=== PATIENT | male | born 1955 | race Caucasian/White ===

== ENCOUNTER → 2019-01-11 | Outpatient (CLI) | payer BC ==
--- NOTE | 2019-01-11 14:48 | XR ---
EXAMINATION TYPE: XR chest 2V DATE OF EXAM: 01/11/2019 COMPARISON: NONE TECHNIQUE: PA and lateral views submitted. HISTORY: Increasing shortness of breath FINDINGS: The lungs are clear and there is no pneumothorax, pleural effusion, or focal pneumonia. No overt fa ilure. Heart size normal. Atherosclerotic change aorta. Biapical pleural thickening. Hypertrophic and degenerative change of the spine. Mild hyperinflation. IMPRESSION: 1. No acute process. Mild hyperinflation correlate for asthma or COPD.
== END | disposition home or self-care (01) ==
LOC: RADXRYALE 14:04
PROVIDERS: ATTEND Internal Medicine
DX: R91.8 Other nonspecific abnormal finding of lung field (principal); R06.02 Shortness of breath
CPT/HCPCS: 71046

== ENCOUNTER → 2020-03-18 | Outpatient (CLI) | payer BC ==
--- NOTE | 2020-03-18 13:48 | MR ---
EXAMINATION TYPE: MR knee LT wo con DATE OF EXAM: 03/18/2020 COMPARISON: None HISTORY: Pain in LT knee TECHNIQUE: Multiplanar, multisequence imaging of the left knee is performed without IV contrast. FINDINGS: MEDIAL MENISCUS: Myxoid degeneration posterior horn medial meniscus. Meniscal body and anterior horn are intact. LATERAL MENISCUS: Anterior and posterior horns are intact without tear. CRUCIATE LIGAMENTS: The anterior and posterior cruciate ligaments are intact and unremarkable. COLLATERAL LIGAMENTS: The medial collateral ligament and lateral collateral ligament complex are inta ct and unremarkable. EXTENSOR MECHANISM: Visualized quadriceps and patellar tendons are intact. EFFUSION: No significant suprapatellar joint effusion. POPLITEAL CYST: No popliteal/fontanez cyst. TRICOMPARTMENT SPACES: Mild narrowing medial tibiofemoral joint space. Moderate to severe narrowing p atellofemoral joint space with the cartilaginous thinning and changes of chondromalacia patella. BONE MARROW SIGNAL: Increased bone marrow signal involving the ventral portion of the distal femur co mpatible with bone marrow contusion. OTHER: No additional significant abnormality is appreciated. IMPRESSION: 1. 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 2. Chondromalacia patella. 3. Bone marrow edema distal femur.
== END | disposition home or self-care (01) ==
LOC: RADMRIMAIN 13:00
PROVIDERS: ATTEND Orthopaedic Surgery
DX: M22.42 Chondromalacia patellae, left knee (principal); M17.12 Unilateral primary osteoarthritis, left knee

== ENCOUNTER → 2020-12-02 | Outpatient (CLI) | payer BC ==
--- NOTE | 2020-12-02 15:36 | XR ---
Left RIBS with chest x-ray HISTORY: Trauma and pain 5 views are submitted, frontal view of the chest 4 views of the RIBS There is no evident displaced rib fracture. There is a spinal curvature, thoracic spondylosis is note d. The chest shows no acute abnormality, there is no pneumothorax, lung contusion, or pleural effusio n. Cardiac and mediastinal silhouette is stable. IMPRESSION: No acute abnormality. Bone scan could be performed to assess for occult injury as indicat ed
== END | disposition home or self-care (01) ==
LOC: RADXRYALE 12:14
PROVIDERS: ATTEND Internal Medicine
DX: R07.81 Pleurodynia (principal)

== ENCOUNTER 2023-05-25 08:16 | Day surgery (SDC) | payer BC, MEDICARE ==
[2023-05-21 14:20] VITALS: BMI 29.2
[~2023-05-25 08:16] MED LIST: LIDOCAINE 1% (10MG/ML) FOR IV START INTRADERMA PRN
[2023-05-25] MEDS: LIDOCAINE 1% (10MG/ML) FOR IV START INTRADERMA ONE (09:24)
[2023-05-25] MEDS: LACTATED RINGERS 1,000 ML IV SCH (09:24)
[2023-05-25 09:28] VITALS: TEMP 98
[2023-05-25 09:30] LABS: Glucose,Whole Blood 108 mg/dL (70-110)
[2023-05-25] MEDS ORDERED: PROPOFOL 10 MG/ML 20 ML VIAL IV ONE (10:03)
--- NOTE | 2023-05-25 10:53 | P.PCN ---
Date of Procedure: 05/25/23 Procedure(s) Performed: BRIEF HISTORY: Patient is a 67-year-old pleasant white female scheduled for an elective colonoscopy as a part of screening for colon cancer. PROCEDURE PERFORMED: Colonoscopy. PREOPERATIVE DIAGNOSIS: Screening for colon cancer. IV sedation per Anesthesia. PROCEDURE: After informed consent was obtained, the patient, was brought into the endoscopy unit. IV sedation was administered by Anesthesia under continuous monitoring. Digital rectal examination was normal. Initially the Olympus CF-160 flexible video colonoscope was then inserted in the rectum, gradually advanced into the cecum without any difficulty. Careful examination was performed as the scope was gradually being withdrawn. Ileocecal valve and the appendiceal orifice were visualized and appeared normal. Prep was excellent. Mucosa of the cecum, ascending colon, transverse colon, descending colon, sigmoid colon, and rectum appeared normal. Retroflexion was performed in the rectum and no lesions were seen. The patient tolerated the procedure well. IMPRESSION: Normal-appearing colon from rectum to cecum with no evidence of colorectal neoplasia. RECOMMENDATIONS: Findings of this examination were discussed with the patient As well as his family. He was advised to have a repeat screening colonoscopy in 10 years.
[2023-05-25 11:44] VITALS: BP 111/65; PULSE 62; RESP 16
== END 2023-05-25 11:12 | disposition home or self-care (01) ==
LOC: ORWHC2ENDO 08:16
PROVIDERS: ATTEND Internal Medicine Gastroenterology
DX: Z12.11 Encounter for screening for malignant neoplasm of colon (principal); I10 Essential (primary) hypertension; E78.5 Hyperlipidemia, unspecified; J44.9 Chronic obstructive pulmonary disease, unspecified; E07.9 Disorder of thyroid, unspecified; N40.0 Benign prostatic hyperplasia without lower urinary tract symptoms; Z79.890 Hormone replacement therapy; Z79.899 Other long term (current) drug therapy; Z79.51 Long term (current) use of inhaled steroids
CPT/HCPCS: G0121; J2704; 45378